=== PATIENT | female | born 1970 ===

== ENCOUNTER 2016-06-23 23:29 | Emergency (ER) | payer MEDICAID ==
[2016-06-23 23:41] VITALS: BP 137/84; PULSE 97; RESP 16; TEMP 98.3; O2SAT 99
--- NOTE | 2016-06-24 01:00 | ED PDOC ---
Lower Extremity Pain/Injury Time Seen by Provider: 06/24/16 00:30 Chief Complaint (Nursing): Lower Extremity Problem/Injury History Per: Patient History/Exam Limitations: no limitations Onset/Duration Of Symptoms: Days Current Symptoms Are (Timing): Still Present Severity: Moderate Additional Complaint(s): CC: Right Leg Pain HPI: The patient is 46 y/o woman w/ PMH of previous DVT s/p left venectomy and varicose veins presents with right leg pain. The pain started 4 days ago while patient was lying down. The patient felt that the vein in her calf "popped" and resulted in exquisite pain. The pain is stabbing/squeezing in nature, localized, worsened with movement and weight bearing, and not alleviated by anything. The patient takes no medications. The patient has extensive history of bilateral lower extremity varicose vein with surgery on left LE over 10 yrs ago at [facility]. The patient developed a DVT after discharge for venectomy. The patient denies current use of anticoagulants. The patient is currently on her period and denies use of oral contraceptives due to DVT history. The patient complains of pelvic cramps and heavy bleed with period. The patient denies headaches, chest pain, dyspnea, hemoptysis, nausea, vomiting , dysuria, and fever. The patient denies any coagulopathies. PMD: [facility] ([facility]) Allergies: NKDA PMH: left LE DVT, varicose veins PSH: left flat foot reconstruction surgery, left LE venectomy >10yrs ago ( [facility]), appendectomy Fam: grandmother has similar varicose vein problems SOC: denies smoking, alcohol, and drugs ROS: negative for 10 systems except stated in HPI - Risk Factors DVT Risk Factors: Pos: History Of DVT Past Medical History Vital Signs: Last Vital Signs Temp 98.3 F 06/23/16 23:34 Pulse 97 H 06/23/16 23:34 Resp 16 06/23/16 23:34 BP 137/84 06/23/16 23:34 Pulse Ox 99 06/23/16 23:34 - Medical History PMH: HTN - Surgical History Surgical History: Appendectomy - Family History Family History: States: Unknown Family Hx - Home Medications Home Medications: Ambulatory Orders Medication Instructions Recorded Albuterol HFA [Ventolin HFA 90 0.09 mg IH Q6 #1 puff 04/08/16 mcg/actuation (8 g)] - Allergies Allergies/Adverse Reactions: Allergies Allergy/AdvReac Type Severity Reaction Status Date / Time No Known Allergies Allergy Verified 04/08/16 17:14 Wells Criteria for PE - Wells Criteria for Pulmonary Embolism Clinical Signs and Symptoms of DVT: No P.E is #1 Diagnosis, or Equally Likely: No Heart Rate >100: No Immobilization at least 3 days;Surgery previous 4 weeks: No Previous, objectively diagnosed PE or DVT: Yes Hemoptysis: No Malignancy w/treatment within 6 months, or palliative: No Total Score: 1.5 Review of Systems ROS Statement: Except As Marked, All Systems Reviewed And Found Negative Constitutional: Negative for: Fever Eyes: Negative for: Pain ENT: Negative for: Throat Pain, Throat Swelling Cardiovascular: Negative for: Chest Pain, Palpitations Respiratory: Negative for: Cough, Shortness of Breath, Hemoptysis Gastrointestinal: Negative for: Nausea, Vomiting Genitourinary Female: Negative for: Dysuria Musculoskeletal: Positive for: Leg Pain Skin: Negative for: Rash Neurological: Negative for: Headache Physical Exam - Physical Exam Appears: Positive for: No Acute Distress Head Exam: Positive for: ATRAUMATIC, NORMOCEPHALIC Skin: Positive for: Warm, Dry. Negative for: Diaphoresis, Rash, Mottled Eye Exam: Positive for: Normal appearance, EOMI ENT: Positive for: Normal ENT Inspection Neck: Positive for: Normal, Painless ROM, Supple Cardiovascular/Chest: Positive for: Regular Rate, Rhythm, Chest Non Tender. Negative for: Tachycardia Respiratory: Positive for: Normal Breath Sounds. Negative for: Accessory Muscle Use, Stridor, Wheezing, Respiratory Distress Pulses-Carotid (L): 2+ Pulses-Carotid (R): 2+ Pulses-Dorsalis Pedis (L): 2+ Pulses-Dorsalis Pedis (R): 2+ Pulses-Post. Tibialis (L): 2+ Pulses-Post. Tibialis (R): 2+ Pulses-Radial (L): 2+ Pulses-Radial (R): 2+ Gastrointestinal/Abdominal: Positive for: Normal Exam, Bowel Sounds, Soft. Negative for: Tenderness, Distended Extremity: Positive for: Tenderness, Calf Tenderness (erythema at the medial calf, tender to light touch, palpable mass), Swelling Neurologic/Psych: Positive for: Alert, Oriented - Laboratory Results Result Diagrams: 06/24/16 00:50 06/24/16 00:50 - ECG O2 Sat by Pulse Oximetry: 99 Medical Decision Making Medical Decision Making: The patient is 46 y/o woman w/ PMH of previous DVT s/p left venectomy and varicose veins presents with right leg pain. DDX: DVT vs. muscle strain vs. lymphangitis 00:30 CBC w/diff: WNL CMP: WNL D-dimer: 1.05 H aPTT: WNL PT: WNL INR: WNL urine test: negative duplex U/S right lower extremity: negative for DVT re-evaluate 04:00 CT angio chest PE protocol: negative for PE 5:00 discharge to home counseled on importance of follow up with [facility] Disposition - Clinical Impression Clinical Impression: Superficial thrombophlebitis, Varicose veins of left lower extremities with pain - Patient ED Disposition Is Patient to be Admitted: No Discussed With : Gary Solomon Doctor Will See Patient In The: Office Counseled Patient/Family Regarding: Studies Performed, Diagnosis, Need For Followup - Disposition Referrals: [facility] [Outside] Disposition: Routine/Home Disposition Time: 05:01 Condition: STABLE Additional Instructions: Please follow up with [facility] clinic in 2-3 days If you develop chest pain, cough with blood, and/or shortness of breath please return to ED
[2016-06-24 01:16] LABS: BASO % 0.6 % (0.0-2.0); EOS # 0.2 K/uL (0.0-0.7); EOS % 3.5 % (0.0-4.0); HEMATOCRIT 42.6 % (34.0-47.0); LYMPH # 0.8 K/uL (1.0-4.3); LYMPH % 13.8 % (20.0-40.0); MEAN CELL VOLUME 89.5 fl (81.0-99.0); MEAN CORPUSCULAR HEMOGLOBIN 29.2 pg (27.0-31.0); MEAN CORPUSCULAR HGB CONC 32.6 g/dL (33.0-37.0); MONO # 0.8 K/uL (0.0-0.8); MONO % 13.8 % (0.0-10.0); NEUT # 3.7 K/uL (1.8-7.0); NEUT % 68.3 % (50.0-75.0); RED CELL DISTRIBUTION WIDTH 14.4 % (11.5-14.5); WHITE BLOOD COUNT 5.5 K/uL (4.8-10.8)
[2016-06-24 01:35] LABS: ALB/GLOB RATIO 1.1 (1.0-2.1); ALKALINE PHOSPHATASE 76 U/L (38-126); ALT/SGPT 36 U/L (9-52); AST/SGOT 21 U/L (14-36); BILIRUBIN,TOTAL 0.5 mg/dl (0.2-1.3); BLOOD UREA NITROGEN 16 mg/dl (7-17); CALCIUM 9.6 mg/dL (8.4-10.2); CARBON DIOXIDE 22 mmol/L (22-30); CHLORIDE 107 mmol/L (98-107); GFR AFRICAN-AMERICAN > 60; GLUCOSE,RANDOM 113 mg/dL (65-105); SODIUM 141 mmol/l (132-148); TOTAL PROTEIN 8.1 G/DL (6.3-8.2)
[2016-06-24 01:39] LABS: PARTIAL THROMBOPLASTIN TIME 26.4 SECONDS (23.3-32.5)
--- NOTE | 2016-06-24 02:07 | US ---
EXAM: US Duplex Right Lower Extremity Veins CLINICAL HISTORY: 46 years old, female; Pain; Leg, lower; Right; Additional info: R leg pain rule out clot TECHNIQUE: Real-time ultrasound scan of the veins of the right lower extremity with color Doppler flow, spectral waveform analysis and compression. COMPARISON: No relevant prior studies available. FINDINGS: Deep veins: Normal color and spectral Doppler flow. Normal compressibility. No deep vein thrombosis from common femoral to popliteal vein. Superficial veins: Thrombosed superficial vein along medial aspect of knee. Soft tissues: No popliteal cyst. IMPRESSION: 1. No evidence of DVT within RIGHT lower extremity. 2. Superficial thrombophlebitis. 3. Incidental/non-acute findings are described above.
[2016-06-24] MEDS ORDERED: Iodixanol 320 MG/ML 100 ML BOTTLE IV ONE (04:02)
[2016-06-24] MEDS ORDERED: Sodium Chloride 0.9% 50 ML IV ONE (04:02)
--- NOTE | 2016-06-24 04:50 | CT ---
EXAM: CT Angiography Chest With Intravenous Contrast CLINICAL HISTORY: 46 years old, female; Signs and symptoms; Other: Elevated ddimer; Additional info: Elevated d-dimer 1.05 TECHNIQUE: Axial computed tomographic angiography images of the chest with intravenous contrast using pulmonary embolism protocol. This CT exam was performed using one or more of the following dose reduction techniques: automated exposure control, adjustment of the mA and/or kV according to patient size, and/or use of iterative reconstruction technique. MIP reconstructed images were created and reviewed. Coronal and sagittal reformatted images were created and reviewed. CONTRAST: 95 mL of [id number] administered intravenously. COMPARISON: CT CHEST W06/14/2008 7:25:23 PM FINDINGS: Pulmonary arteries: No pulmonary embolism. Aorta: No aneurysm. No dissection. Lungs: Minimal atelectasis/scarring. No consolidation. 0.4 cm AUBREY nodule, stable. Pleural space: No significant effusion. No pneumothorax. Heart: No cardiomegaly. No significant pericardial effusion. Bones/joints: Mild degenerative changes of spine. No acute fracture. Soft tissues: Unremarkable. Lymph nodes: Several subcentimeter/borderline enlarged short axis mediastinal and hilar lymph nodes, grossly stable. IMPRESSION: 1. No CT evidence of pulmonary embolism. 2. Pulmonary nodule. No follow-up is necessary for patients with low or high risk of malignancy. 3. Incidental/non-acute findings are described above.
== END 2016-06-24 05:44 | disposition home or self-care (01) ==
LOC: H.ER 23:29
DX: I80.01 Phlebitis and thrombophlebitis of superficial vessels of right lower extremity (principal); Z86.718 Personal history of other venous thrombosis and embolism; I10 Essential (primary) hypertension

== ENCOUNTER 2016-06-25 08:53 | Emergency (ER) | payer MEDICAID ==
[2016-06-25 09:21] VITALS: RESP 18; TEMP 98; O2SAT 100
[2016-06-25] MEDS ORDERED: DiphenhydrAMINE 50 mg/ml Inj IM STA (09:26)
[2016-06-25] MEDS ORDERED: methylPREDNISolone 60 MG in Sodium Chloride 0.9% 50 ML IV ONE (12:00)
--- NOTE | 2016-06-25 13:02 | ED PDOC ---
HPI: Allergic Reaction Time Seen by Provider: 06/25/16 09:16 Chief Complaint (Nursing): Allergic Reaction Chief Complaint (Provider): Allergic Reaction History Per: Patient History/Exam Limitations: no limitations Onset/Duration Of Symptoms: Hrs Current Symptoms Are (Timing): Still Present Possible Cause: Medication Associated Symptoms: Skin Rash, Itching Home/EMS Treatment: None Severity: Mild Additional Complaint(s): Patient is a 46 year old female who presents to ED for diffuse itching that began last night. Patient reports that she was evaluated in ED 2 days ago, received IV contact fo a CT angio and believes this may have perpetrated that rash. Denies mouth, tongue or throat swelling. Patient states she took no medication for symptoms at home. Denies chest pain, SOB or palpations. Past Medical History Reviewed: Historical Data, Nursing Documentation, Vital Signs Vital Signs: Last Vital Signs Temp 98 F 06/25/16 09:14 Pulse 99 H 06/25/16 09:14 Resp 18 06/25/16 09:14 BP 118/88 06/25/16 09:14 Pulse Ox 100 06/25/16 09:14 - Medical History PMH: HTN - Surgical History Surgical History: Appendectomy - Family History Family History: States: Unknown Family Hx - Home Medications Home Medications: Ambulatory Orders Medication Instructions Recorded Albuterol HFA [Ventolin HFA 90 0.09 mg IH Q6 #1 puff 04/08/16 mcg/actuation (8 g)] DiphenhydrAMINE [Benadryl] 25 mg PO Q4 PRN #12 cap 06/25/16 Prednisone 50 mg PO DAILY #4 tab 06/25/16 - Allergies Allergies/Adverse Reactions: Allergies Allergy/AdvReac Type Severity Reaction Status Date / Time No Known Allergies Allergy Verified 04/08/16 17:14 Review of Systems Eyes: Negative for: Vision Change ENT: Negative for: Mouth Pain, Mouth Swelling, Throat Pain, Throat Swelling Cardiovascular: Negative for: Chest Pain, Palpitations Respiratory: Negative for: Shortness of Breath Gastrointestinal: Negative for: Vomiting Skin: Positive for: Rash Neurological: Negative for: Weakness, Numbness, Headache Physical Exam - Reviewed Nursing Documentation Reviewed: Yes Vital Signs Reviewed: Yes - Physical Exam Appears: Positive for: Non-toxic, No Acute Distress Skin: Positive for: Normal Color, Warm, Rash (diffuse erythroderma to neck, face , chest and back) Eye Exam: Positive for: Normal appearance Neck: Positive for: Normal, Painless ROM Cardiovascular/Chest: Positive for: Regular Rate, Rhythm. Negative for: Murmur Respiratory: Positive for: Normal Breath Sounds. Negative for: Stridor, Respiratory Distress Extremity: Positive for: Normal ROM Neurologic/Psych: Positive for: Alert, Oriented - ECG O2 Sat by Pulse Oximetry: 100 (RA) Pulse Ox Interpretation: Normal Disposition - Clinical Impression Clinical Impression: Allergic reaction to contrast dye - Disposition Additional Instructions: Return to ER for any difficulty breathing, weakness, or any concern. Take benadryl 25mg every 6 hours today. Take prednisone 50mg daily for 3 more days. Prescriptions: DiphenhydrAMINE [Benadryl] 25 mg PO Q4 PRN #12 cap PRN Reason: Itching / Pruritus Prednisone 50 mg PO DAILY #4 tab Instructions: Radiological Ionic Contrast Media (By injection), General Allergic Reaction (ED) Medical Decision Making Medical Decision Making: Time: 920 Initial impression: Allergic reaction Initial plan: -- Atarax, Bendryl and Solumedrol IV Patient monitored in ED for approximately 4 hours with significant improvement. Patient will be discharged at this time with Prednisone and follow up instructions. Scribe Attestation: Documented by Abigail Bee acting as a scribe for David Cam DO. Scribe Attestation: All medical record entries made by the Scribe were at my direction and personally dictated by me. I have reviewed the chart and agree that the record accurately reflects my personal performance of the history, physical exam, medical decision making, and the department course for this patient. I have also personally directed, reviewed, and agree with the discharge instructions and disposition.
[2016-06-25 13:42] VITALS: BP 110/84; PULSE 90
== END 2016-06-25 13:15 | disposition home or self-care (01) ==
LOC: H.ER 08:53
DX: T78.40XA Allergy, unspecified, initial encounter (principal)

== ENCOUNTER 2017-02-25 08:45 | Emergency (ER) | payer MEDICAID ==
[2017-02-25 08:58] VITALS: BMI 43.2
[2017-02-25 09:00] VITALS: BP 144/84; PULSE 90; RESP 16; TEMP 98; O2SAT 98
--- NOTE | 2017-02-25 10:12 | ED PDOC ---
Upper Extremity Pain/Injury Time Seen by Provider: 02/25/17 09:29 Chief Complaint (Nursing): Upper Extremity Problem/Injury Chief Complaint (Provider): right shoulder pain History Per: Patient History/Exam Limitations: no limitations Onset/Duration Of Symptoms: Days, Gradual, Persistent Current Symptoms Are (Timing): Still Present Quality: Dull, Aching Severity: Moderate Pain Scale Rating Of: 7 Torso/Front (Pic): 1 - Tenderness Exacerbating Factor(s): Strenuous Use Of Affected Area, Movement, Worse At Night Additional Complaint(s): 47 y/o morbidly obese female presents complaining for Right shoulder pain. Pain has been chronic for several months now but has been gradually worsening without any identifiable acute triggering event. Pt reports having right tennis elbow in the past and reports the pain in her shoulder is similar to that. Pain is located at the right anterior shoulder, at the bicipital groove and radiates to her right shoulder blade. It is 7/10 is pain, dull/achy/sore in character, slightly alleviated with 10mg Cyclobenzapine Q8H and exacerbated with movement and lifting over shoulder height. Denies any history of trauma to the area. No history of recent falls. Denies any neck pain, headaches, RUQ pain, N/V/D/C, CP/ SOB/palpitations, numbness/tingling. Past Medical History Vital Signs: Last Vital Signs Temp 98 F 02/25/17 08:58 Pulse 90 02/25/17 08:58 Resp 16 02/25/17 08:58 BP 144/84 02/25/17 08:58 Pulse Ox 98 02/25/17 08:58 - Medical History PMH: HTN, Peripheral Edema Denies: Chronic Kidney Disease - Surgical History Surgical History: Appendectomy, Tonsillectomy - Family History Family History: States: Unknown Family Hx - Immunization History Hx Influenza Vaccination: No Hx Pneumococcal Vaccination: Yes - Home Medications Home Medications: Ambulatory Orders Medication Instructions Recorded Collagenase [Santyl] 90 gm EXT BID #1 tube 08/19/16 Doxycycline Hyclate 100 mg PO BID #14 capsule 08/19/16 Naproxen [Naprosyn] 500 mg PO BID 10 Days #20 tablet 02/25/17 - Allergies Allergies/Adverse Reactions: Allergies Allergy/AdvReac Type Severity Reaction Status Date / Time contrast dye Allergy Intermediate ITCHING Uncoded 08/14/16 12:37 Review of Systems ROS Statement: Except As Marked, All Systems Reviewed And Found Negative Physical Exam - Physical Exam Appears: Positive for: Non-toxic, No Acute Distress Head Exam: Positive for: ATRAUMATIC, NORMOCEPHALIC Skin: Positive for: Normal Color, Warm, Dry. Negative for: Diaphoresis, Pallor Eye Exam: Positive for: Normal appearance, EOMI, PERRL. Negative for: Conjunctival injection, Scleral icterus Neck: Positive for: Normal, Painless ROM, Supple Cardiovascular/Chest: Positive for: Regular Rate, Rhythm, Chest Non Tender. Negative for: JVD Respiratory: Positive for: Normal Breath Sounds. Negative for: Crackles, Rales , Rhonchi, Wheezing Pulses-Carotid (L): 2+ Pulses-Carotid (R): 2+ Pulses-Radial (L): 2+ Pulses-Radial (R): 2+ Gastrointestinal/Abdominal: Positive for: Normal Exam, Bowel Sounds (normal ), Soft. Negative for: Tenderness Back: Positive for: Normal Inspection. Negative for: L CVA Tenderness, R CVA Tenderness, Vertebral Tenderness, Muscle Spasm DTR - Bicep (R): 2+ DTR - Bicep (L): 2+ DTR - Tricep (R): 2+ DTR - Tricep (L): 2+ Neurologic/Psych: Positive for: Alert, grain shipper II-XII, Oriented. Negative for: Motor/Sensory Deficits - ECG O2 Sat by Pulse Oximetry: 98 - Progress ED Course And Treament: 30mg Toradol IM Re-evaluate Re-evaluation Time: 11:31 Condition: Re-examined, Improved Disposition - Clinical Impression Clinical Impression: Chronic shoulder pain, Biceps tendinitis - Patient ED Disposition Is Patient to be Admitted: No - Disposition Disposition: Routine/Home Disposition Time: 11:32 Condition: STABLE Additional Instructions: follow up with primary doctor in 1 week Prescriptions: Naproxen [Naprosyn] 500 mg PO BID 10 Days #20 tablet Instructions: Tendinitis (ED) Forms: [employer] ([place]ian)
== END 2017-02-25 11:53 | disposition home or self-care (01) ==
LOC: H.ER 08:45
DX: M25.511 Pain in right shoulder (principal); G89.29 Other chronic pain; M75.21 Bicipital tendinitis, right shoulder; I10 Essential (primary) hypertension
CPT/HCPCS: 96372; 99282; J1885